=== PATIENT | female | born 1955 | race Caucasian/White ===

== ENCOUNTER 2017-06-27 14:21 | Emergency (ER) | payer OTHER ==
[2017-06-27] MEDS ORDERED: Labetalol 5 MG/ML 5 ML Syringe IVPUSH ONE (14:53)
--- NOTE | 2017-06-27 14:57 | EDM.PDOC ---
ED HPI GENERAL MEDICAL PROBLEM - General Chief Complaint: Cardiovascular Problem Stated Complaint: HIGH BLOOD PRESSURE Time Seen by Provider: 06/27/17 14:24 Source of Information: Reports: Patient History Limitations: Reports: No Limitations - History of Present Illness INITIAL COMMENTS - FREE TEXT/NARRATIVE: History of present illness: []Patient was noted to have elevated blood pressure in March as told by her doctor to watch it. Been holding steady 140s over 90s until her. Today she noted it to be 177/115 she was at work also had a feeling on the top of her head and left side of her neck felt like a muscle pull. She denies headache, blurry vision, chest pain, numbness or tingling or any other complaints. To the [facility] and was given nitroglycerin, clonidine, and 3 baby aspirins and sent to the ED for further evaluation after pressure remained high. Review of systems: As per history of present illness and below otherwise all systems reviewed and negative. Past medical history: As per history of present illness and as reviewed below otherwise noncontributory. Surgical history: As per history of present illness and as reviewed below otherwise noncontributory. Social history: No reported history of drug or alcohol abuse. Family history: As per history of present illness and as reviewed below otherwise noncontributory. Physical exam: General: Well developed, well nourished in NAD HEENT: Atraumatic, normocephalic, pupils reactive, negative for conjunctival pallor or scleral icterus, mucous membranes moist, throat clear, neck supple, nontender, trachea midline. Lungs: Clear to auscultation, breath sounds equal bilaterally, chest nontender. Heart: S1S2, regular, negative for clicks, rubs, or JVD. Abdomen: Soft, nondistended, nontender. Negative for masses or hepatosplenomegaly. Negative for costovertebral tenderness. Pelvis: Stable nontender. Genitourinary: Deferred. Rectal: Deferred. Extremities: Atraumatic, negative for cords or calf pain. Neurovascular unremarkable. Neuro: Awake, alert, oriented. Cranial nerves II through XII unremarkable. Cerebellum unremarkable. Motor and sensory unremarkable throughout. Exam nonfocal. Diagnostics: [] Therapeutics: [] Impression: [] Plan: [] Definitive disposition and diagnosis as appropriate pending reevaluation and review of above. - Related Data Allergies Allergy/AdvReac Type Severity Reaction Status Date / Time No Known Allergies Allergy Verified 06/27/17 14:35 Home Meds: Home Meds . [No Known Home Meds] 06/27/17 [History] Past Medical History - Past Health History Medical/Surgical History: Denies Medical/Surgical History - Infectious Disease History Infectious Disease History: Reports: Chicken Pox, Measles, Mumps Social & Family History - Family History Family Medical History: Noncontributory - Tobacco Use Smoking Status *Q: Light Tobacco Smoker Years of Tobacco use: 10 Packs/Tins Daily: 0.1 - Caffeine Use Caffeine Use: Reports: None - Recreational Drug Use Recreational Drug Use: No ED ROS GENERAL - Review of Systems Review Of Systems: See Below (see history of present illness) ED EXAM, GENERAL - Physical Exam Exam: See Below (See history of present illness) Course - Vital Signs Last Recorded V/S: Last Vital Signs Temp 98.9 F 06/27/17 14:32 Pulse 65 06/27/17 15:38 Resp 18 06/27/17 15:38 BP 147/94 H 06/27/17 15:38 Pulse Ox 97 06/27/17 15:38 - Orders/Labs/Meds Orders: Active Orders 24 hr Category Date Time Status Cardiac Monitoring [RC] . DIRECTED Care 06/27/17 15:19 Inactive EKG Documentation Completion [RC] STAT Care 06/27/17 14:54 Active Head wo Cont [CT] Stat Exams 06/27/17 15:18 Taken Blood Pressure [OM.PC] Stat Oth 06/27/17 15:19 Ordered Labs: Laboratory Tests 06/27/17 06/27/17 Range/Units 15:11 15:26 WBC 7.65 (4.0-11.0) K/uL RBC 4.74 (4.30-5.90) M/uL Hgb 15.2 (12.0-16.0) g/dL Hct 44.8 (36.0-46.0) % MCV 94.5 (80.0-98.0) fL MCH 32.1 H (27.0-32.0) pg MCHC 33.9 (31.0-37.0) g/dL RDW Std Deviation 44.6 (28.0-62.0) fl RDW Coeff of Maikel 13 (11.0-15.0) % Plt Count 232 (150-400) K/uL MPV 9.20 (7.40-12.00) fL Neut % (Auto) 65.9 (48.0-80.0) % Lymph % (Auto) 22.2 (16.0-40.0) % [place] % (Auto) 9.2 (0.0-15.0) % Eos % (Auto) 2.0 (0.0-7.0) % Baso % (Auto) 0.7 (0.0-1.5) % Neut # (Auto) 5.1 (1.4-5.7) K/uL Lymph # (Auto) 1.7 (0.6-2.4) K/uL [place] # (Auto) 0.7 (0.0-0.8) K/uL Eos # (Auto) 0.2 (0.0-0.7) K/uL Baso # (Auto) 0.1 (0.0-0.1) K/uL Nucleated RBC % 0.0 /100WBC Nucleated RBCs # 0 K/uL Sodium 141 (136-146) mmol/L Potassium 4.5 (3.5-5.1) mmol/L Chloride 104 (98-110) mmol/L Carbon Dioxide 27 (21-31) mmol/L BUN 20 (6.0-23.0) mg/dL Creatinine 0.9 (0.6-1.5) mg/dL Est Cr Clr Drug Dosing TNP Estimated GFR (MDRD) > 60.0 ml/min Glucose 97 (60-110) mg/dL Calcium 9.8 (8.8-10.8) mg/dL Total Bilirubin 0.4 (0.1-1.5) mg/dL AST 24 (5-40) IU/L ALT 29 (8-54) IU/L Alkaline Phosphatase 82 (40-150) Troponin I < 0.10 (0.0-0.29) NG/ML Total Protein 7.4 (6.0-8.0) g/dL Albumin 4.5 (3.4-4.8) g/dL Globulin 2.9 (2.0-3.5) g/dL Albumin/Globulin Ratio 1.6 (1.3-2.8) Meds: Medications Discontinued Medications Generic Name Dose Route Start Last Admin Trade Name Freq PRN Reason Stop Dose Admin Labetalol HCl 20 mg 06/27/17 14:53 06/27/17 15:19 Normodyne IVPUSH 06/27/17 14:54 20 mg .BOLUS ONE Administration Protocol Labetalol HCl Confirm 06/27/17 15:16 06/27/17 15:47 Normodyne Administered 06/27/17 15:17 Not Given Dose 100 mg .ROUTE .STK-MED ONE Departure - Departure Time of Disposition: 17:07 Disposition: Home, Self-Care 01 Condition: Good Clinical Impression: Uncontrolled hypertension Referrals: PCP,None [Primary Care Provider] - Forms: ED Department Discharge Additional Instructions: The following information is given to patients seen in the emergency department who are being discharged to home. This information is to outline your options for follow-up care. We provide all patients seen in our emergency department with a follow-up referral. The need for follow-up, as well as the timing and circumstances, are variable depending upon the specifics of your emergency department visit. If you don't have a primary care physician on staff, we will provide you with a referral. We always advise you to contact your personal physician following an emergency department visit to inform them of the circumstance of the visit and for follow-up with them and/or the need for any referrals to a consulting specialist. The emergency department will also refer you to a specialist when appropriate. This referral assures that you have the opportunity for follow-up care with a specialist. All of these measure are taken in an effort to provide you with optimal care, which includes your follow-up. Under all circumstances we always encourage you to contact your private physician who remains a resource for coordinating your care. When calling for follow-up care, please make the office aware that this follow-up is from your recent emergency room visit. If for any reason you are refused follow-up, please contact the [facility] at and asked to speak to the emergency department charge nurse. Take metoprolol every 12 hours for blood pressure control follow-up there PMD next week. [facility] [address] [place] [id number] - My Orders Last 24 Hours: My Active Orders 06/27/17 14:54 EKG Documentation Completion [RC] STAT 06/27/17 15:18 Head wo Cont [CT] Stat 06/27/17 15:19 Cardiac Monitoring [RC] . DIRECTED Blood Pressure [OM.PC] Stat - Assessment/Plan Last 24 Hours: My Active Orders 06/27/17 14:54 EKG Documentation Completion [RC] STAT 06/27/17 15:18 Head wo Cont [CT] Stat 06/27/17 15:19 Cardiac Monitoring [RC] . DIRECTED Blood Pressure [OM.PC] Stat
[2017-06-27] MEDS ORDERED: Labetalol 100 MG/20 ML MDV ONE (15:16)
--- NOTE | 2017-06-27 15:23 | CR ---
EXAMINATION: Portable chest radiograph. HISTORY: Chest pain. FINDINGS: The trachea is midline. The cardiomediastinal silhouette is within normal limits. No pulmonary infilt rates, effusions or pneumothorax. Osseous structures appear unremarkable. IMPRESSION: No acute cardiopulmonary process.
[2017-06-27 15:45] LABS: CHLORIDE,CL 104 mmol/L (98-110); SODIUM,NA 141 mmol/L (136-146)
--- NOTE | 2017-06-30 11:22 | CT ---
EXAM DATE: 06/27/17 PATIENT'S AGE: 62 Patient: ELVIRA LANDAVERDE Facility: [place], [place] Site . Site : [id number] Study: CT Head [id number] 4:06:35 PM Ordering Physician: Faheem García Final Report: INDICATION: new hypertension with confusion TECHNIQUE: CT Head without contrast. COMPARISON: None. FINDINGS: There is no sign of intracranial hemorrhage or mass effect. Remote infarct within the right basal ganglia. The bradford-white differentiation is preserved. No abnormal intra-axial or extra-axial fluid collection. No acute disease of the visualized paranasal sinuses and mastoid air cells. Left globe prosthesis. No fracture evident. No scalp hematoma/laceration. IMPRESSION: No acute intracranial process. Dictated by: Mj Evans MD @ 06/27/2017 16:47:36 (Electronic Signature) Report Signed by Proxy. [facility]
== END 2017-06-27 17:23 | disposition home or self-care (01) ==
LOC: MW.ED 14:21
DX: I10 Essential (primary) hypertension (principal); F17.210 Nicotine dependence, cigarettes, uncomplicated
CPT/HCPCS: 36415; 70450; 70450-26; 71010; 71010-26; 80053; 84484; 85025; 93005; 96374; 99285; 99285-25